=== PATIENT | female | born 1945 | race African-American/Black ===

== ENCOUNTER 2016-05-19 06:17 | Day surgery (SDC) | payer MEDICARE ==
--- NOTE | ~2016-05-19 | OP ---
Record Of Operation [facility] [address] [place]. [address] NAME: IGOR VALLECILLO : 45 STATUS : [facility]#: [id number] AGE: 70 ADM/REG DATE : 05/19/16 MR#: [id number] REPORT SERV DATE: 05/19/16 DICTATED BY: LISSETH TREVIZO DATE: 05/19/16 REPORT STATUS : Draft TRANSCRIBED BY: PAPI DATE: 05/19/16 DATE OF PROCEDURE: 05/19/2016 SURGEON: Lisseth Trevizo M.D. BORDERER: Dr. Dillard. ANESTHESIA: General and local. PREOPERATIVE DIAGNOSIS: Right breast cancer. POSTOPERATIVE DIAGNOSIS: Right breast cancer. PROCEDURE: 1. Injection of blue dye, right breast. 2. Right breast lumpectomy. 3. Right axillary sentinel node biopsy x3 nodes. 4. Adjacent tissue rearrangement for closure of right breast excision site. HISTORY: The patient is a 70-year-old, female, who recently presented with a palpable mass in the right breast lower outer quadrant discovered on self exam. Ultrasound-guided core biopsy performed on 05/09/2016, showed a grade 3 invasive ductal cancer. This was ER positive, LA negative, and HER-2/edyta negative. Proliferation rate was high at 70 to 80%. There was no evidence of adenopathy. Additional stains confirmed this to be a breast primary as there was some question about the appearance of the lesion on initial evaluation. The patient was counseled regarding her treatment options, and has decided to proceed with breast conserving surgery and sentinel node biopsy. Her clinical stage is T2, N0, M0. NARRATIVE SUMMARY: Earlier in the day, the patient was taken to the Nuclear Medicine Department, where she underwent injection of technetium-99 sulfur colloid to the skin of the right breast. Subsequent imaging illuminated a sentinel node in the low axilla. She was brought to surgery and given a balanced general anesthetic via LMA airway. After appropriate skin prep, a 1:4 dilution of methylene blue dye was injected in the right subareolar space. The breast was massaged for several minutes. The right arm was placed out on an arm board, and the right breast and axillary areas were then prepped and draped in the usual fashion. By exam, there was a mobile 2.5 cm mass in the right breast lower outer quadrant at 7 to 8 o'clock region. This was close to the skin surface, but did not appear to be attached to the skin. There was no palpable adenopathy present. Record Of Operation [facility] [place] [address] NAME: IGOR VALLECILLO : 45 STATUS : [facility] PAT#: [id number] AGE: 70 ADM/REG DATE : 05/19/16 MR#: [id number] REPORT SERV DATE: 05/19/16 DICTATED BY: LISSETH TREVIZO DATE: 05/19/16 REPORT STATUS : Draft TRANSCRIBED BY: PAPI DATE: 05/19/16 A time-out was called to verify the identity of the patient, review allergies, verified appropriate administration of antibiotics, and verify the appropriate procedure as being right breast lumpectomy, and sentinel node biopsy. Attention was initially turned for performance of lumpectomy. The tumor was approached through an inframammary crease incision transversely toward the lower outer right breast after the area was infiltrated with 0.5% Marcaine. Sharp dissection was used to raise the skin and subcutaneous flaps superiorly over the tumor and in a fairly wide margin around the tumor to allow for subsequent tissue mobilization. The tumor appeared to closely approach the skin anteriorly, but did not appear to directly invade this. There was a point of attachment noted, but this was felt to represent the needle entry site from core biopsy. With the skin flaps well mobilized, excision of the tumor was accomplished with sharp dissection based on palpation guidance. Dissection continued down to the level of the chest wall, but did not include the pectoralis fascia. The specimen was removed without difficulty, marked for orientation purposes with two sutures placed, and handed off fresh to the pathologist. The pathologist inked the margins and serially sectioned the specimen. The margin anteriorly appeared quite close, but other margins were free by gross exam. In the meantime, mobilization of the breast tissue in the lower outer quadrant was accomplished along the surface of the chest wall in order to mobilize the tissue posteriorly for adjacent tissue rearrangement and closure. Because of the close anterior margin, and the area of attachment felt to be present at the biopsy site, this area was excised via a vertical extension off the original incision with a small keyhole made to excise an island of skin at the biopsy entry site. This was sent as a separate specimen, labeled re-excision anterior margin for permanent section only. The breast wound was packed open and attention turned to the axilla. A low-transverse axillary incision was made and subcutaneous tissue was divided down onto the axillary fat pad. Readily identified was a hot spot in the low axilla using the gamma probe. No blue dye was seen to have traversed to the axilla at any point during the dissection. The first node was removed, performing all dissection in the axilla using the Harmonic Scalpel. This had an ex vivo 10 second count of 3475 and was labeled as sentinel node #1. A second hot spot was located nearby. Removal of the second node revealed an ex vivo 10 second count of 1493. This was labeled as sentinel node #2. The third node was located further posterior. This node was removed and had an ex vivo 10 second count of 921. This was labeled as sentinel node #3. There was no significant residual background count remaining within the axilla and no residual palpable adenopathy. All three nodes were sent separately as specimens for permanent section only. Labeled sentinel nodes one, two, and three. The axillary incision was thoroughly irrigated and aspirated free of fluid. The area was infiltrated again with 0.5% Marcaine. Closure was accomplished in layers using 3-0 Vicryl Record Of Operation [address] [address] NAME: IGOR VALLECILLO : 45 STATUS : [facility] PAT#: [id number] AGE: 70 ADM/REG DATE : 05/19/16 MR#: [id number] REPORT SERV DATE: 05/19/16 DICTATED BY: LISSETH TRVEIZO DATE: 05/19/16 REPORT STATUS : Draft TRANSCRIBED BY: MODL DATE: 05/19/16 interrupted subcutaneous suture and 4-0 Monocryl running subcuticular closure for skin. Attention was then turned to the open breast incision. The wound was thoroughly irrigated and aspirated free of fluid. Bleeding was controlled using cautery. There was a tissue defect present at the lumpectomy site measuring less than 10 square cm diameter. The mobilized breast tissue medially and laterally was approximated in a primary fashion utilizing 3-0 Vicryl sutures. This completely closed the breast tissue defect down to the chest wall and anteriorly to the subcutaneous tissue. The wound edges were then approximated using 3-0 Vicryl interrupted subcutaneous sutures, closing the wound in an inverted T fashion and incorporating the additional skin excision described above. Skin edges were closed using 4-0 Monocryl running subcuticular closure. The entire area was again infiltrated further with 0.5% Marcaine. Dressings were applied and the patient was awakened and transported to the recovery area in stable condition. Estimated blood loss was 25 mL. Sponge, instrument, and needle counts were all correct. There were no complications noted. LW/MODL Lisseth Trevizo M.D. / [id number] CC: Trip Walker M.D.
[~2016-05-19 06:17] MED LIST: ACET500CAP PO; ADVAIR250 INH; ALBUTEROL5 INH; ALIGN4 MG PO; ALLEGRA180 PO; AMB10 PO; AMB5 PO; APRES25 PO; ASAB PO; ATIVAN2 MG PO; ATRONASAL3 NAS; ATV.5 PO; ATV1 PO; CALCARB PO; CALTRA600D PO; CARD120 PO; CARDCD240 PO; CEPACOL ULTR1 LOZ MT; CLARIT10 PO; CLOTRIMAZOLE1 % VA; CO Q-10200 MG PO; DEPAKOT250 PO; DIOV80 PO; DIOVAN40 MG PO; DITROXL5 PO; DSS PO; DUONEB INH; ERYTHROMYCIN 2% TOP; FLONASE NAS; FOLIC PO; FOSAMAX70 MG PO; GAS-X80 MG PO; GENASYME80 MG PO; GENTEAL 15 ML O15 ML OPH; HYDROQUINONE; IMITREX50 PO; IMOD PO; IOPHEN DM NR PO; IPRATROPIUM BROMIDE NAS; KCL20UDL PO; KLOR-CON 1010 MEQ PO; KLOR-CON M1010 MEQ PO; LIDODERM T; LORT7 PO; LORTAB 5 PO; LORTAB10 PO; MTX2.5 PO; MUSCLE RU3 EX; MYLUD PO; NEXIUM20 M1 PO; NEXIUM40 PO; NORCO1 TA2 PO; PCET PO; PLAQ200B PO; PRILO PO; PROAIR HFA INH; PROVHFA INH; SARNA EX; SENTAB PO; SINGULAIR1 PO; SPIRIVA INH; TEAR OPH; TOPAMAX100 PO; TOPAMAX25 PO; TOPAMAX50 MG PO; TOPXL100 PO; TRANDAT100 PO; VENTOLIN HFA INH; VITAMIN B-2100 MG PO; VITD PO; VOLTAREN1 % TOP; WELLBUTRIN200 MG PO; ZETIA PO; ZOFRAN4 PO; ZOL100 PO; ZOL50 PO; ZYRTEC ALLGY10 MG PO; [UNRECOGNIZED DRUG - MIXTURE]; [UNRECOGNIZED DRUG - OTHER] MT; [UNRECOGNIZED DRUG - OTHER] PO
[2016-06-09] MEDS ORDERED: REM15 PO (08:22)
== END 2016-05-19 16:42 | disposition home or self-care (01) ==
LOC: SDC 06:17
PROVIDERS: Surgery
PROC: 07B50ZX Excision of Right Axillary Lymphatic, Open Approach, Diagnostic (ICD-10-PCS; 2016-05-19)
PROC: 0HX5XZZ Transfer Chest Skin, External Approach (ICD-10-PCS; 2016-05-19)
PROC: 0HBT0ZZ Excision of Right Breast, Open Approach (ICD-10-PCS; principal; 2016-05-19 09:45)
DX: C50.511 Malignant neoplasm of lower-outer quadrant of right female breast (principal); E78.5 Hyperlipidemia, unspecified; M06.9 Rheumatoid arthritis, unspecified; F41.9 Anxiety disorder, unspecified; F32.9 Major depressive disorder, single episode, unspecified; J44.9 Chronic obstructive pulmonary disease, unspecified; I10 Essential (primary) hypertension; M81.0 Age-related osteoporosis without current pathological fracture; K21.9 Gastro-esophageal reflux disease without esophagitis; Z82.3 Family history of stroke; Z87.891 Personal history of nicotine dependence; Z80.3 Family history of malignant neoplasm of breast; Z82.49 Family history of ischemic heart disease and other diseases of the circulatory system; Z88.2 Allergy status to sulfonamides; Z88.8 Allergy status to other drugs, medicaments and biological substances; Z79.899 Other long term (current) drug therapy; Z79.82 Long term (current) use of aspirin; Z86.73 Personal history of transient ischemic attack (TIA), and cerebral infarction without residual deficits; G43.909 Migraine, unspecified, not intractable, without status migrainosus; D64.9 Anemia, unspecified; Z96.653 Presence of artificial knee joint, bilateral; Z90.711 Acquired absence of uterus with remaining cervical stump; Z90.89 Acquired absence of other organs; Z98.890 Other specified postprocedural states
CPT/HCPCS: 78195; 88305; 88307; 88342; A9270-GY; A9541; J0690; J2270; J2405; J3010

== ENCOUNTER 2016-06-15 11:58 | Day surgery (SDC) | payer MEDICARE ==
[2016-06-08 09:38] LABS: BASOPHILS 0.3 %; BASOPHILS ABSOLUTE 0.02 10/3/uL (0.0-0.16); EOSINOPHILS 4.5 %; HEMOGLOBIN 11.5 g/dL (12.0-16.0); IMMATURE GRANULOCYTES 0.2 %; IMMATURE GRANULOCYTES ABSOLUTE 0.01 10/3/uL (0.0-0.11); LYMPHOCYTES ABSOLUTE 2.71 10/3/uL (0.67-4.30); MEAN CORPUS HGB CONC 32.9 g/dL (32.0-36.0); MEAN CORPUSCULAR HEMOGLOB 32.1 pg (26.0-34.0); MEAN CORPUSCULAR VOLUME 97.8 fL (80-100); MONOCYTES 10.1 %; MONOCYTES ABSOLUTE 0.67 10/3/uL (0.21-1.20); NEUTROPHILS 43.9 %; PLATELET COUNT 270 10/3/uL (150-400); RBC DISTRIBUTION WIDTH 14.3 % (12.0-16.0); RED CELL COUNT 3.58 10/6/uL (4.0-5.6); WHITE BLOOD CELLS 6.6 10/3/uL (4.5-10.5)
[2016-06-08 09:39] LABS: MANUAL DIFF NO %
[2016-06-08 09:56] LABS: BUN (BLOOD UREA NITROGEN) 15 MG/DL (6-23); CALCIUM, SERUM 8.5 MG/DL (8.5-10.4); CHLORIDE, SERUM 109 MMOL/L (96-112); CO2 (CARBON DIOXIDE) 26 MMOL/L (24-34); CREATININE 0.75 MG/DL (0.55-1.02); GFR AFRICAN AMERICAN 94 ML/MIN (>=60); GFR NON AFRICAN AMERICAN 81 ML/MIN (>=60); GLUCOSE, SERUM 82 MG/DL (60-99); POTASSIUM, SERUM 3.9 MMOL/L (3.5-5.3)
[2016-06-08 09:57] LABS: SODIUM, SERUM 146 MMOL/L (135-148)
--- NOTE | ~2016-06-15 | OP ---
Record Of [facility] [address] [place]. [address] NAME: IGOR MONROY : 45 STATUS : [facility]#: [id number] AGE: 70 ADM/REG DATE : 06/15/16 MR#: [id number] REPORT SERV DATE: 06/15/16 DICTATED BY: LISSETH TREVIZO DATE: 06/15/16 REPORT STATUS : Draft TRANSCRIBED BY: MODL DATE: 06/15/16 DATE OF PROCEDURE: 06/15/2016 PREOPERATIVE DIAGNOSES: 1. Breast cancer. 2. Fibrosclerosis with need for cytotoxic chemotherapy. POSTOPERATIVE DIAGNOSES: 1. Breast cancer. 2. Fibrosclerosis with need for cytotoxic chemotherapy. PROCEDURE PERFORMED: Left subclavian Port-A-Cath placement. SURGEON: Lisseth Trevizo M.D. RESIDENT: Dez Rosales MD ANESTHETIC: MAC. ESTIMATED BLOOD LOSS: 5 mL. IV FLUIDS: 300. SPECIMENS: None. DRAINS: None. COMPLICATIONS: None. WOUND CLASSIFICATION: Clean. PREOPERATIVE HISTORY AND INDICATIONS: This is a 70-year-old female who recently underwent a right lumpectomy for her breast cancer. She was seen by Medical Oncology and stage as a grade 3. She was offered chemotherapy. She was offered a Port-A-Cath placement. For cytotoxic chemotherapy, the risks, benefits, and alternatives were described to the patient and her family in detail, and they are amenable to the procedure. DESCRIPTION OF PROCEDURE: After informed consent was obtained, the patient was taken to the operating suite and placed in supine position. After sufficient induction of MAC anesthesia, the patient's bilateral chest and neck were prepped and draped in normal sterile fashion. Time-out was called, identifying the patient as the Igor Monroy with the procedure being performed of Port-A-Cath placement. Local anesthetic was then infiltrated along the left clavicle and the subcutaneous tissues. Introducer needle was then introduced into the left subclavian vein. On the first attempt, the wire was threaded through the needle into the vein. Fluoroscopy was then brought in. The wire was noted to be folded back on herself. Distally several attempts were made to advance wire. Eventually, the wire Record Of [facility] [address] [place]. [address] NAME: IGOR MONROY : 45 STATUS : [facility] PAT#: [id number] AGE: 70 ADM/REG DATE : 06/15/16 MR#: [id number] REPORT SERV DATE: 06/15/16 DICTATED BY: LISSETH TREVIZO DATE: 06/15/16 REPORT STATUS : Draft TRANSCRIBED BY: PAPI DATE: 06/15/16 was removed. Needle was then reintroduced into the left subclavian vein, again on the first attempt, the wire was then passed, this time passed into the superior vena cava and into the inferior vena cava, which was confirmed with fluoroscopy. The needle was removed leaving the wire in place. Scalpel was then used to make the skin incision around the wire. The dilator and Peel-Away catheter were then advanced over the wire into the left subclavian vein. The dilator and wire were then removed using the Peel-Away catheter in place. The Port-A-Cath catheter was then threaded through the Peel-Away catheter and advanced to the cavoatrial junction, and this was confirmed on placement with fluoroscopy. The Peel-Away catheter was then removed. A scalpel was then to make skin incision on the anterior chest wall in the left. Electrocautery was used to dissect down into the subcutaneous tissues. A pocket was created in the subcutaneous tissues using combination of blunt dissection and electrocautery. A hemostat was then used to tunnel to the catheter site. Catheter was then passed with the hemostat to the anterior skin incision. It was then trimmed to the appropriate length and connected to the Port-A-Cath reservoir. This was accessed and it was noted to easily draw and flush. Reservoirs were then placed in the pocket created in the subcutaneous tissues. Fluoroscopy was then used again to ensure proper placement. There is proper placement at the distal SVC. The subcutaneous tissues have been reapproximated using 3-0 Vicryl in interrupted manner. The skin was then closed using 4-0 Monocryl in a subcuticular running fashion. The wound was then dressed with Telfa and Tegaderm. The patient tolerated the procedure well. She was awakened in the operating suite and transferred to the PACU in stable and satisfactory condition. DICTATED BY: MD VALERIA Walter/PAPI Lissteh Trevizo M.D. / [id number] CC: Trip Walker M.D.
[~2016-06-15 11:58] MED LIST changes: +REM15 PO
== END 2016-06-15 16:18 | disposition home or self-care (01) ==
LOC: SDC 11:58
PROVIDERS: Surgery
PROC: 05H633Z Insertion of Infusion Device into Left Subclavian Vein, Percutaneous Approach (ICD-10-PCS; 2016-06-15)
PROC: B517YZA Fluoroscopy of Left Subclavian Vein using Other Contrast, Guidance (ICD-10-PCS; 2016-06-15)
PROC: 0JH60XZ Insertion of Tunneled Vascular Access Device into Chest Subcutaneous Tissue and Fascia, Open Approach (ICD-10-PCS; principal; 2016-06-15 13:15)
DX: C50.511 Malignant neoplasm of lower-outer quadrant of right female breast (principal); E78.5 Hyperlipidemia, unspecified; M06.9 Rheumatoid arthritis, unspecified; F41.9 Anxiety disorder, unspecified; F32.9 Major depressive disorder, single episode, unspecified; M81.0 Age-related osteoporosis without current pathological fracture; M19.90 Unspecified osteoarthritis, unspecified site; K21.9 Gastro-esophageal reflux disease without esophagitis; J44.9 Chronic obstructive pulmonary disease, unspecified; G43.909 Migraine, unspecified, not intractable, without status migrainosus; J45.909 Unspecified asthma, uncomplicated; D64.9 Anemia, unspecified; I10 Essential (primary) hypertension; Z86.73 Personal history of transient ischemic attack (TIA), and cerebral infarction without residual deficits; Z96.651 Presence of right artificial knee joint; Z87.891 Personal history of nicotine dependence; Z82.49 Family history of ischemic heart disease and other diseases of the circulatory system; Z80.3 Family history of malignant neoplasm of breast; Z88.2 Allergy status to sulfonamides; Z88.8 Allergy status to other drugs, medicaments and biological substances; Z79.899 Other long term (current) drug therapy; Z79.82 Long term (current) use of aspirin
CPT/HCPCS: 71010; 77001; 80048; 85025; 93005; C1751; J0690; J2405; J3010